=== PATIENT | female | born 1985 | race Caucasian/White ===

== ENCOUNTER 2018-07-18 14:59 | Emergency (ER) | payer SELFPAY ==
[2018-07-18 15:17] VITALS: BP 118/83
--- NOTE | 2018-07-18 15:34 | UC ---
Upper Extremity HPI - HPI Summary HPI Summary: 33 year old female presents with complaints of pain to left ring finger. States yesterday she accidentally got her left ring finger pinched between 2 tables. Reports bruising and mild swelling to middle phalange of left ring finger. She has full ROM to finger with some discomfort. She has taken ibuprofen and applied a splint to the finger which has improved the pain. Denies numbness or tingling. - History of Current Complaint Chief Complaint: UCUpperExtremity Stated Complaint: L FINGER INJURY Time Seen by Provider: 07/18/18 15:30 Hx Obtained From: Patient Hx Last Menstrual Period: [id number] Onset/Duration: Sudden Onset Severity Initially: Moderate Severity Currently: Mild Pain Intensity: 3 Location Of Pain: Is Discrete @ - left ring finger Character: Throbbing Aggravating Factor(s): Movement Alleviating Factor(s): OTC Meds, Other: - splinting Associated Signs And Symptoms: Positive: Swelling, Bruising. Negative: Redness , Numbness/Tingling Related History: Dominant Hand Right - Allergies/Home Medications Allergies/Adverse Reactions: Allergies Allergy/AdvReac Type Severity Reaction Status Date / Time No Known Allergies Allergy Verified 07/18/18 15:18 Home Medications: Home Medications ALPRAZolam TAB* [Xanax TAB*] 0.25 mg PO Q1HR PRN MDD 0.5 mg 07/18/18 [History Confirmed 07/18/18] Cetirizine* [ZyrTEC 10 MG TAB*] 10 mg PO DAILY 07/18/18 [History Confirmed 07/18] FLUoxetine* [PROzac*] 20 mg PO DAILY 07/18/18 [History Confirmed 07/18/18] Ibuprofen TAB* [Motrin TAB* 400 MG] 400 mg PO Q6H PRN 07/18/18 [History Confirmed 07/18/18] Lisdexamfetamine(NF) [Vyvanse(NF)] 40 mg PO DAILY 07/18/18 [History Confirmed ] diPHENhydraMINE PO* [Benadryl PO 50 MG CAP*] 50 mg PO BEDTIME 07/18/18 [History Confirmed 07/18/18] PMH/Surg Hx/FS Hx/Imm Hx - Additional Past Medical History Additional PMH: Environmental allergies Previously Healthy: Yes Psychological History: Anxiety, Depression Other Psychological History: ADHD - Surgical History Surgical History: Yes Surgery Procedure, Year, and Place: wisdom teeth - Family History Family History: Noncontributory - Social History Occupation: Student Lives: With Family Alcohol Use: Weekly Substance Use Type: None Smoking Status (MU): Never Smoked Tobacco Review of Systems Constitutional: Negative Skin: Bruising Motor: Negative Neurovascular: Negative Musculoskeletal: Other: - See HPI Is Patient Immunocompromised?: No All Other Systems Reviewed And Are Negative: Yes Physical Exam Triage Information Reviewed: Yes Appearance: Well-Appearing, No Pain Distress, Well-Nourished Vital Signs: Initial Vital Signs Temp 99.2 F 07/18/18 15:12 Pulse 73 07/18/18 15:12 Resp 16 07/18/18 15:12 BP 118/83 07/18/18 15:12 Pulse Ox 100 07/18/18 15:12 Vital Signs Reviewed: Yes Respiratory: Positive: No respiratory distress Cardiovascular: Positive: Pulses Normal, Brisk Capillary Refill Musculoskeletal: Positive: Other: - Mild tenderness left ring finger with bruising noted to dorsal aspect of middle phalange. ROM intact. No deformity or crepitus noted. Neurological: Positive: Alert, Other: - Sensation intact Skin: Positive: Other - See above. Diagnostics - Radiology No standard instances Xray Interpretation: No Acute Changes Radiology Interpretation Completed By: ED Physician, Radiologist - Order Information: FINGER LEFT RING Accession Number: [id number] CPT: 88692 Indication: LEFT fourth finger crush injury. Pain and swelling. Comparison: No relevant prior exams available on the [facility] [place] for [place]. Technique: 3 views LEFT fourth finger. Report: Negative for fracture or articular malalignment. Unremarkable soft tissue contours. IMPRESSION: #. Negative exam. Upper Extremity Course/Dx - Course Course Of Treatment: 33 year old female with left ring finger pain after pinching it between 2 tables. Exam revealed bruising and tenderness over middle phalange of left ring finger without deformity. X-ray negative for fracture. Recommend conservative management with RICE and OTC analgesics. She is to follow up with PCP if no improvement in symptoms. Verbalizes understanding and agrees with POC. - Differential Dx/Diagnosis Differential Diagnosis/HQI/PQRI: Contusion, Fracture (Closed) Provider Diagnoses: left ring finger contusion Discharge - Sign-Out/Discharge Documenting (check all that apply): Patient Departure All imaging exams completed and their final reports reviewed: Yes - Discharge Plan Condition: Stable Disposition: HOME Patient Education Materials: Contusion in Adults (ED) Referrals: No Primary Care Phys,NOPCP [Primary Care Provider] - Additional Instructions: The X-ray performed in the clinic today was negative for any fracture. I suspect that you have a severe contusion (bruise) of the finger. Take acetaminophen (Tylenol) or ibuprofen (Advil, Motrin) according to directions as needed for pain. Rest the finger as much as possible. You may continue to use the splint for comfort and support however I would like you to remove every 2 hours and perform some gentle range of motion exercises. Apply ice for 15-20 minutes at least 3-4 times a day. Keep the hand elevated at the level of your heart to reduce any swelling. Return here or follow up with your primary care provider in 1 week if no improvement in symptoms. - Billing Disposition and Condition Condition: STABLE Disposition: Home - Attestation Statements Provider Attestation: I was available for consult. This patient was seen by the ARYAN. The patient was not presented to, seen by, or examined by me. -Ale
--- NOTE | 2018-07-18 15:54 | RAD ---
Indication: LEFT fourth finger crush injury. Pain and swelling. Comparison: No relevant prior exams available on the [facility] [place] for [place]. Technique: 3 views LEFT fourth finger. Report: Negative for fracture or articular malalignment. Unremarkable soft tissue contours. IMPRESSION: #. Negative exam.
== END 2018-07-18 16:09 | disposition home or self-care (01) ==
LOC: UCEAST 14:59
DX: S60.042A Contusion of left ring finger without damage to nail, initial encounter (principal); W23.0XXA Caught, crushed, jammed, or pinched between moving objects, initial encounter; Y92.9 Unspecified place or not applicable
CPT/HCPCS: 73140; 99201; G0463

== ENCOUNTER 2019-01-03 07:46 | Emergency (ER) | payer OTHER ==
[2019-01-03 07:59] VITALS: BP 131/78
--- NOTE | 2019-01-03 08:13 | UC ---
Respiratory Complaint HPI - HPI Summary HPI Summary: 33-year-old woman comes in with a chief complaint of upper respiratory tract infection symptoms for 6 days. 6 days ago patient had a sore throat cough congestion bodyaches fever. It gradually started to improve until yesterday when she felt like the infection went into her chest. Now she is having sputum production that's yellowish. She's having wheezing. She does feel short of breath. She had a pneumonia in 2009 and this reminds her of the beginning of the pneumonia. She used [id number] medications which has helped with the symptoms. - History of Current Complaint Chief Complaint: UCRespiratory Stated Complaint: URI Time Seen by Provider: 01/03/19 07:49 Hx Last Menstrual Period: 12/07/18 Pain Intensity: 2 - Allergies/Home Medications Allergies/Adverse Reactions: Allergies Allergy/AdvReac Type Severity Reaction Status Date / Time No Known Allergies Allergy Verified 07/18/18 15:18 Home Medications: Home Medications guaiFENesin ER TAB [Mucinex*] 600 mg PO Q6H PRN 01/03/19 [History Confirmed ] PMH/Surg Hx/FS Hx/Imm Hx Previously Healthy: Yes Respiratory History: Asthma, Pneumonia - Surgical History Surgical History: Yes Surgery Procedure, Year, and Place: wisdom teeth - Family History Known Family History: Positive: Non-Contributory Family History: Noncontributory - Social History Alcohol Use: Occasionally Substance Use Type: None Smoking Status (MU): Never Smoked Tobacco Review of Systems All Other Systems Reviewed And Are Negative: Yes Constitutional: Positive: Fever Skin: Positive: Negative Eyes: Positive: Negative ENT: Positive: Sore Throat, Nasal Discharge, Sinus Congestion Respiratory: Positive: Shortness Of Breath, Cough, Other - WHEEZING Cardiovascular: Positive: Negative Gastrointestinal: Positive: Negative Motor: Positive: Negative Neurovascular: Positive: Negative Musculoskeletal: Positive: Myalgia Neurological: Positive: Negative Psychological: Positive: Negative Is Patient Immunocompromised?: No Physical Exam Triage Information Reviewed: Yes Appearance: No Pain Distress, Well-Nourished, Ill-Appearing - MILOD Vital Signs: Initial Vital Signs Temp 98.1 F 01/03/19 07:52 Pulse 110 01/03/19 07:52 Resp 18 01/03/19 07:52 BP 131/78 01/03/19 07:52 Pulse Ox 98 01/03/19 07:52 Vital Signs Reviewed: Yes Eye Exam: Normal Eyes: Positive: Conjunctiva Clear ENT: Positive: Pharyngeal erythema, Nasal congestion, Nasal drainage, TMs normal Neck exam: Normal Neck: Positive: Supple Respiratory: Positive: No respiratory distress, No accessory muscle use, Rhonchi Cardiovascular: Positive: Tachycardia Musculoskeletal Exam: Normal Musculoskeletal: Positive: Strength Intact, ROM Intact Neurological Exam: Normal Neurological: Positive: Alert, Muscle Tone Normal Psychological Exam: Normal Psychological: Positive: Normal Response To Family, Age Appropriate Behavior Skin Exam: Normal Respiratory Course/Dx - Course Course Of Treatment: DISCUSSED VIRAL VERSES BACTERIAL INFECTION AND THE ROLE OF ANTIBIOTICS. THE PATIENT WISHES TO BE ON ANTIBIOTICS AT THIS TIME. - Differential Dx/Diagnosis Provider Diagnosis: Bronchitis with bronchospasm Discharge - Sign-Out/Discharge Documenting (check all that apply): Patient Departure All imaging exams completed and their final reports reviewed: No Studies - Discharge Plan Condition: Stable Disposition: HOME Prescriptions: Albuterol HFA INHALER* [Ventolin HFA Inhaler*] 2 puff INH Q4H PRN #1 mdi PRN Reason: Wheezing Azithromyxin JESUS (NF) [Z-Jesus (Zithromax) 250 mg tabs #6] 2 tab PO .TODAY, THEN 1 DAILY #6 tab Patient Education Materials: Acute Bronchitis (ED), Bronchospasm (ED) Forms: *Work Release Referrals: [facility] [facility] [Outside] Additional Instructions: FOLLOW UP WITH YOUR DOCTOR IF NOT COMPLETELY IMPROVED. GET RECHECKED FOR ANY WORSENING OF YOUR CONDITION OR QUESTIONS OR CONCERNS. - Billing Disposition and Condition Condition: STABLE Disposition: Home
== END 2019-01-03 08:17 | disposition home or self-care (01) ==
LOC: UCEAST 07:46
DX: J45.909 Unspecified asthma, uncomplicated (principal); J34.89 Other specified disorders of nose and nasal sinuses; Z87.01 Personal history of pneumonia (recurrent)
CPT/HCPCS: 99211; G0463

== ENCOUNTER 2024-05-17 11:24 | Inpatient (IN) ==
[2024-05-17] MEDS ORDERED: Prochlorperazine 5 mg/ml 2 ml VIAL (10 mg) IV PRN (12:05)
[2024-05-17] MEDS ORDERED: Lidocaine 1% VIAL 10 MG/ML 30 ML VIAL INJ PRN (12:05)
[2024-05-17] MEDS ORDERED: Buffered Lidocaine 1% SYRIN 1 ml INTRADERM ONE (12:05)
[2024-05-17 13:26] LABS: ABS Eosinophils 0.1 10^3/uL (0.0-0.5); ABS Lymphocytes 1.5 10^3/uL (1.0-4.8); ABS Monocytes 0.7 10^3/uL (0.0-0.9); ABS Neutrophils 5.7 10^3/uL (1.5-7.6); Eosinophil % 0.8 %; Hematocrit 37.6 % (35-45); Hemoglobin 13.3 g/dL (11.5-14.3); Lymphocyte % 18.9 %; Mean Corpuscular Hemoglobin 33.4 pg (27-33); Mean Corpuscular Hgb Conc 35.3 g/dL (31-36); Mean Corpuscular Volume 94.7 fL (80-97); Mean Platelet Volume 9.5 fL (7.5-11.2); Platelet Count 180 10^3/uL (150-450); Red Blood Count 3.97 10^6/uL (3.63-4.92); Red Cell Distribution Width 12.4 % (12-17)
[2024-05-17 13:34] LABS: Urine Benzodiazepine Screen None Detected (None Detect); Urine Cannabinoids Screen None Detected (None Detect); Urine Opiates Screen None Detected (None Detect)
[2024-05-17] MEDS: miSOPROStol 100 mcg TAB PO ONE (14:47)
[2024-05-17] MEDS: Oxytocin in LR 20,000 MILLI.UNIT/1,000 ML BAG IV SCH (19:32)
[2024-05-17] MEDS: Lactated Ringers 1000 ml BAG 1,000 ML IV SCH (19:32)
[2024-05-17] MEDS: Ondansetron 4 mg VIAL 2 MG/ML 2 ml VIAL IV PRN (22:29)
[2024-05-17] MEDS: Lactated Ringers 1000 ml BAG 1,000 ML IV ONE (23:08)
[2024-05-17] MEDS: OBEPIDURAL (200 ML) 200 ML EPIDURAL ONE (23:41)
[2024-05-17] MEDS ORDERED: Phenylephrine 40 mcg/mL 10mL (400mcg) SYRINGE IV PUSH PRN ×2 (23:49)
[2024-05-17] MEDS ORDERED: Sodium Citrate/Citric Acid LIQ 15 ML UDC PO PRN (23:49)
[2024-05-18] MEDS: OBEPIDURAL (200 ML) 200 ML EPIDURAL SCH (00:31)
[2024-05-18] MEDS: Lactated Ringers 1000 ml BAG 1,000 ML IV ONE (00:31)
[2024-05-18] MEDS: Lidocaine 1.5% EPI 1:200,000 30 ML SDV ONE (00:32)
[2024-05-18 01:01] LABS: Urine Appearance Turbid; Urine Bilirubin Negative (Negative); Urine Blood Negative (Negative); Urine Color Light-Yellow; Urine Glucose Negative (Negative); Urine Ketones Trace (Negative); Urine Nitrite Negative (Negative); Urine Protein Negative (Negative); Urine Urobilinogen Negative (Negative)
[2024-05-18] MEDS: Lactated Ringers 1000 ml BAG 1,000 ML IV SCH (03:14)
[2024-05-18] MEDS ORDERED: Glycerin ADULT 2.4 gm SUPP PR PRN (05:38)
[2024-05-18] MEDS ORDERED: Lactated Ringers 1000 ml BAG 1,000 ML IV SCH (06:00)
[2024-05-18] MEDS: Dibucaine 1% OINT 28.35 GM TUBE PR PRN (07:21)
[2024-05-18] MEDS: Witch Hazel PAD JAR TOPICAL PRN (07:21)
[2024-05-18] MEDS: Oxytocin in LR 20,000 MILLI.UNIT/1,000 ML BAG IV SCH (11:09)
[2024-05-19 09:03] LABS: ABS Eosinophils 0.1 10^3/uL (0.0-0.5); ABS Lymphocytes 2.6 10^3/uL (1.0-4.8); ABS Monocytes 0.7 10^3/uL (0.0-0.9); ABS Neutrophils 6.6 10^3/uL (1.5-7.6); Eosinophil % 1.4 %; Hemoglobin 9.3 g/dL (11.5-14.3); Lymphocyte % 25.8 %; Mean Corpuscular Hemoglobin 33.6 pg (27-33); Mean Corpuscular Hgb Conc 34.5 g/dL (31-36); Mean Corpuscular Volume 97.2 fL (80-97); Platelet Count 137 10^3/uL (150-450); Red Blood Count 2.77 10^6/uL (3.63-4.92); Red Cell Distribution Width 12.6 % (12-17)
[2024-05-20 10:34] VITALS: BP 110/74
[2024-05-20] MEDS: RHO D Immune Globulin (HUMAN) 300 MCG = 1,500 I.U. INJ IM ONE (15:26)
== END 2024-05-20 16:49 | disposition home or self-care (01) | DRG 807 ==
LOC: MCHOBOUT 11:24 → MCHOB 11:47
PROVIDERS: ADMIT Advanced Practice Midwife; ATTEND Advanced Practice Midwife